=== PATIENT | female | born 1960 | race Caucasian/White ===

== ENCOUNTER 2018-09-06 16:43 | Emergency (ER) | payer BC ==
[~2018-09-06] VITALS: Ht 167.6 cm; Wt 79.4 kg
== END 2018-09-06 19:29 | disposition home or self-care (01) ==
LOC: ER 16:43
DX: S80.01XA Contusion of right knee, initial encounter (principal); W01.198A Fall on same level from slipping, tripping and stumbling with subsequent striking against other object, initial encounter; Y93.01 Activity, walking, marching and hiking; Y92.480 Sidewalk as the place of occurrence of the external cause; Y99.8 Other external cause status